=== PATIENT | male | born 1940 | race Caucasian/White ===

== ENCOUNTER 2024-11-14 15:55 | Inpatient (IN) ==
--- NOTE | 2024-11-14 16:21 | Emergency Department Note ---
Impression & Plan SOB (shortness of breath), Atrial fibrillation with rapid ventricular response, CHF (congestive heart failure), Elevated troponin, Elevated liver enzymes, Lung mass ED Provider Note NAME: PHILLIP QUEZADA AGE: 84 SEX: M : 1940 ARRIVES VIA: Walk-In INFORMANT: [Patient][sister] ED PROVIDER(S): [Bala Boggs MD] CHIEF COMPLAINT: Abnormal laboratories HISTORY OF PRESENT ILLNESS: The patient is an 84-year-old male whose had a cough and some shortness of breath for several weeks. No fever. The patient went to an outpatient walk-in center today in [place] and, was found to have some issues with his liver and heart. He was referred to our ER. Patient has some known bilateral inguinal hernias, he states that they are not really causing him any pain. He has no history of heart or liver disease. The patient denies any chest pain. He states his cough is basically nonproductive. No recent vomiting. The patient has not been to see a physician in over 50 years. PMHx/PSHx/Social Hx: See Below PHYSICAL EXAM: GENERAL: Patient is in no acute distress. HEENT: No acute trauma, normocephalic atraumatic, mucous membranes moist, no nasal congestion. NECK: No stridor, no adenopathy, no meningismus, trachea is midline. LUNGS: Clear to auscultation bilaterally, no wheeze, no rhonchi, breath sounds equal. Breath sounds diminished bilaterally. HEART: 2/6 systolic murmur, somewhat irregular rhythm. Normal rate. ABDOMEN: Soft, nontender, no peritonitis. EXTREMITIES: No cyanosis, full range of motion of all the joints without pain or difficulty. Mild bilateral pedal edema. NEUROLOGIC: Oriented x 3, no acute motor or sensory deficits, no focal weakness. SKIN: Mild jaundice, no diaphoresis. DIFFERENTIAL DIAGNOSIS: Liver failure, renal failure, cardiac ischemia, TN, pneumonia, anemia, among others. EMERGENCY DEPARTMENT PROCEDURES: MEDICAL DECISION MAKING: There is no leukocytosis or concerning anemia. There is a lower platelet count at 126. No coagulopathy. VBG did not show any significant CO2 retention, no acidosis. Renal panel testing did not show any acute renal failure or significant electrolyte abnormality. Liver enzymes were elevated, the bilirubin was 2.3. Ammonia level was not elevated. ECG showed a rapid atrial fibrillation without acute ischemia. Cardiac enzyme testing x 1 was slightly elevated. This troponin ovation could be secondary to cardiac injury or mismatch from the rapid heart rate and dyspnea. The patient appeared to be in a euthyroid state. Chest x-ray shows some potential lower lung atelectasis versus infiltrate or even CHF. There was a right lung mass. Chest CT showed the right lung mass and findings of CHF, there was no PE. Abdominal and pelvis CT showed some fatty infiltration to the liver, no acute surgical process, no bowel obstruction. No liver mass. The prostate was enlarged. On exam, the patient was not toxic, he was not hypoxic. He was in a rapid atrial fibrillation. The patient received a 500 cc saline bolus. He was eventually given an IV diltiazem bolus and placed on a diltiazem drip. I talked to the patient and his sister. I did discuss his findings. Hospitalization was clearly indicated. I spoke with the case management team, the on-call hospitalist was consulted. In short, the patient has multiple reasons to be short of breath. He has a mass in his lung, he is in mild heart failure, he is in rapid A-fib. Further workup, monitoring and care is indicated inpatient. Prior/Outside records/notes reviewed: None ECG per my interpretation: Indication was shortness of breath. The ECG shows atrial fibrillation with a rate of 114. PVCs were seen. There was a right bundle branch block. No acute ST elevation. QTc was 435. Continuous Cardiac Monitoring per my interpretation: An order was placed for continuous cardiac monitoring. The monitor shows a rate of 78 with atrial fibrillation. Imaging/x-ray results per my interpretation: Chest x-ray shows some potential heart failure versus bilateral lower lung congestion/atelectasis. A right lung mass was seen along the superior mediastinum. Chronic Medical/Social conditions affecting care: Advanced age. Care/Management discussed with: Case management, the on-call hospitalist. Level of care consideration(s): After review of the information above and other included data: --I believe the patient requires escalation of care to admission Critical Care Note: I have personally spent 54 minutes of critical care time in the direct management of this patient. This includes bedside care, interpretation of diagnostic studies, and testing, discussion with consultants, patient, and family members, and other required patient management activities. This 54 minutes is in excess of all separately billable procedures. DISPOSITION: Admission Past Med/Surg History Problem List Mediastinal mass Atrial fibrillation with RVR Social History Smoking Status: Never smoker Preferred Language: Urdu Feels Safe at Home: Yes Allergies Allergies Allergy/AdvReac Type Severity Reaction Status Date / Time No Known Allergies Allergy Unverified 11/14/24 18:48 Home Meds Home Medications Medication Instructions Recorded Confirmed No Known Home Medications 11/14/24 11/14/24 Results & Data (ED) Vital Signs Vital Signs - 24 hr 11/14/24 16:00 11/14/24 16:39 11/14/24 16:39 Temperature 36.6 C Temperature Source Temporal Artery Scan Pulse Rate 70 114 H Pulse Rate [Apical] 112 H Pulse Rate from SpO2 Sensor Pulse Rhythm Irregular Pulse Rhythm [Apical] Regular Pulse Strength [Apical] Normal Respiratory Rate 16 19 19 Respiratory Effort / Characteristics Non-Labored Spontaneous Non-Labored Spontaneous Respiratory Depth Normal Normal Respiratory Pattern Regular Blood Pressure 137/86 Blood Pressure [Right Arm] 143/98 H Blood Pressure Mean 103 Blood Pressure Mean [Right Arm] 113 Blood Pressure Position [Right Arm] Sitting Pulse Oximetry 100 94 94 Oxygen Delivery Method Room Air Room Air Room Air Sepsis Recent Fever Within 48 Hours No Sepsis New/Unexplained Change in Mental Status No Sepsis Action Taken by Nursing No Action Required 11/14/24 16:45 11/14/24 18:00 11/14/24 18:06 Temperature Temperature Source Pulse Rate 112 H 102 H Pulse Rate [Apical] 111 H Pulse Rate from SpO2 Sensor 124 H Pulse Rhythm Pulse Rhythm [Apical] Regular Pulse Strength [Apical] Normal Respiratory Rate 18 19 Respiratory Effort / Characteristics Non-Labored Spontaneous Respiratory Depth Normal Respiratory Pattern Regular Blood Pressure Blood Pressure [Right Arm] 141/98 H Blood Pressure Mean Blood Pressure Mean [Right Arm] 112 Blood Pressure Position [Right Arm] Lying Pulse Oximetry 96 93 Oxygen Delivery Method Room Air Sepsis Recent Fever Within 48 Hours Sepsis New/Unexplained Change in Mental Status Sepsis Action Taken by Nursing 11/14/24 18:08 11/14/24 18:15 11/14/24 18:21 Temperature Temperature Source Pulse Rate 108 H 119 H Pulse Rate [Apical] Pulse Rate from SpO2 Sensor 113 H 116 H Pulse Rhythm Pulse Rhythm [Apical] Pulse Strength [Apical] Respiratory Rate 17 14 Respiratory Effort / Characteristics Respiratory Depth Respiratory Pattern Blood Pressure 141/98 H 122/100 Blood Pressure [Right Arm] Blood Pressure Mean 110 107 Blood Pressure Mean [Right Arm] Blood Pressure Position [Right Arm] Pulse Oximetry 97 97 Oxygen Delivery Method Sepsis Recent Fever Within 48 Hours Sepsis New/Unexplained Change in Mental Status Sepsis Action Taken by Group Home Medications Current Medication List: was personally reviewed by me Laboratory Data Attestation: I reviewed the patient's lab results. 11/14/24 16:30 11/14/24 16:30 Lab Results 11/14/24 11/14/24 Range/Units 16:30 18:11 WBC 5.02 (4.8-10.8) K/ul RBC 5.38 (4.70-6.10) M/uL Hgb 16.9 (14.0-18.0) g/dl Hct 50.4 (42.0-52.0) % MCV 93.7 (80.0-100.0) fL MCH 31.4 (25.0-34.0) pg MCHC 33.5 (32.0-36.0) g/dL RDW Std Deviation 47.9 H (36.4-46.3) fL RDW Coeff of Ankur 13.9 (11.5-14.5) % Plt Count 126 L (130-400) K/uL MPV 10.2 (9.4-12.4) fL Immature Gran % (Auto) 0.2 % Neut % (Auto) 66.0 % Lymph % (Auto) 19.1 % Taylor % (Auto) 12.9 % Eos % (Auto) 0.8 % Baso % (Auto) 1.0 % Neut # (Auto) 3.31 (1.40-6.50) K/uL Lymph # (Auto) 0.96 L (1.20-3.40) K/uL Taylor # (Auto) 0.65 H (0.11-0.59) K/uL Eos # (Auto) 0.04 (0.00-0.50) K/uL Baso # (Auto) 0.05 (0.00-0.20) K/uL Immature Gran # (Auto) 0.01 (0.01-0.20) K/uL PT 11.4 (9.0-12.0) Seconds INR 1.1 (0.9-1.1) APTT 27 (21-31) Seconds PTT Ratio 1.0 VBG pH 7.43 H (7.36-7.41) VBG pCO2 43 (38-50) mmHg VBG pO2 30 mmHg VBG HCO3 29 mmol/L VBG O2 Saturation < 60.0 % VBG Base Excess 3.7 mEq/L Sodium 141 (136-145) mmol/L Potassium 4.5 (3.5-5.1) mmol/L Chloride 104 (98-107) mmol/L Carbon Dioxide 29 (21-32) mmol/L Anion Gap 8 (3-11) BUN 24 H (6-23) mg/dl Creatinine 1.11 (0.6-1.4) mg/dl Est Cr Clr Drug Dosing 45.8 ml/min eGFR 66.30 BUN/Creatinine Ratio 21.6 H (10-20) Glucose 111 H (70-99(Fasting)) mg/dl Calcium 9.7 (8.6-10.3) mg/dl Magnesium 2.1 (1.7-2.4) mg/dl Total Bilirubin 2.3 H (0.2-1.0) mg/dl AST 65 H (13-39) U/L ALT 91 H (7-52) U/L Alkaline Phosphatase 88 (34-104) U/L Ammonia 17.0 L (18-72) umol/L Troponin I High Sens 23.4 H 24.2 H (0-20) pg/ml Total Protein 7.4 (6.0-8.3) gm/dl Albumin 4.7 (3.4-5.0) gm/dl Globulin 2.7 (2.5-4.0) gm/dl Albumin/Globulin Ratio 1.7 (0.9-2) TSH 0.803 (0.300-4.500) uIu/ml Administered Medications Discontinued Medications Diltiazem HCl (Diltiazem Hcl 5 Mg/Ml 5 Ml Vial) 15 mg IV NOW STA Stop: 11/14/24 18:44 Last Admin: 11/14/24 18:56 Dose: 15 mg Documented By: APRIL Co-signed By: ODALIS Sodium Chloride (Nss) 500 mls @ 999 mls/hr IV .Q31M ANNETTE Stop: 11/14/24 16:45 Last Infusion: 11/14/24 17:08 Dose: Infused Documented By: Admin: 11/14/24 16:34 Dose: 999 mls/hr Documented By: APRIL Ioversol (Optiray 320 125ml) 115 ml IV ONCE ONE Stop: 11/14/24 17:57 Last Admin: 11/14/24 17:59 Dose: 115 ml Documented By: AYAN Imaging Data Radiologist's Impression: Chest X-Ray 11/14/24 16:06 Clinical History: Cough Technique: A frontal view of the chest was obtained No prior examination is available for comparison Findings: There are bilateral lower lobe opacities, concerning for pneumonia. The heart size is at the upper limit of normal. No pleural effusion or pneumothorax is seen. There is right paratracheal masslike prominence with deviation of the trachea towards the left. No fracture is noted. No foreign body is seen Impression: 1. Apparent large right paratracheal mass, concerning for neoplasm or adenopathy. Contrast-enhanced CT of the chest is recommended for further evaluation 2. Suspected bilateral lower lobe pneumonia ACT 112: Positive. There are findings on this exam that require communication between the performing entity and the patient following Patient Test Result Information Act ([place] ACT 112) guidelines. Electronically signed by Xavier Benson 11-14-2024 5:52 PM Abdomen/Pelvis CT 11/14/24 16:16 Clinical History: Liver disease. Possible mass Technique: Axial computed tomography images were obtained of the abdomen and pelvis after the administration of intravenous contrast. No prior CT is available for comparison. Findings: There is fatty infiltration of the liver. There is an apparent 6 mm cyst in the right hepatic lobe. No definite liver mass lesion is seen. The portal vein is patent. The gallbladder appears unremarkable. No bile duct dilatation is noted. The spleen is of normal size. No focal splenic lesion is evident. The pancreas appears normal with no sign of acute or chronic pancreatitis and no mass lesion noted. The pancreatic duct is of normal caliber. The adrenal glands appear unremarkable. No definite renal or proximal ureteral calculi are seen on this contrast-enhanced study. There is no hydronephrosis or perinephric stranding. No renal mass lesion is identified. There is a large 7 cm right renal cyst. There are smaller renal cortical and peripelvic cysts bilaterally. The abdominal aorta is of normal caliber. No abdominal adenopathy is seen. The stomach appears normal. There is a small right inguinal hernia containing a loop of ileum. There is no sign of small bowel obstruction. There is diverticulosis without evidence of diverticulitis. No free intraperitoneal air is identified. There is a small amount of free pelvic fluid No distal ureteral or bladder calculi are seen. No bladder mass lesion is evident. The iliac arteries are of normal caliber. No pelvic adenopathy is noted. The prostate is enlarged measuring approximately 7.5 x 6 cm. There is a small left inguinal hernia containing only fat. There is an L2 compression fracture, likely old. 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 No focal osseous lesion is seen Impression: 1. Fatty infiltration of the liver and small hepatic cyst 2. Bilateral renal cysts 3. Small right inguinal hernia containing small bowel. There is no associated bowel obstruction 4. Small amount of pelvic ascites 5. Diverticulosis without definite diverticulitis 6. Markedly enlarged prostate. Correlation with PSA levels is recommended 7. L2 compression fracture, likely old ACT 112: Positive. There are findings on this exam that require communication between the performing entity and the patient following Patient Test Result Information Act ([place] ACT 112) guidelines. Electronically signed by Xavier Benson 11-14-2024 6:29 PM Chest CTA 11/14/24 17:26 Clinical history: Liver disease. Possible mass Technique: Axial computed tomography images were obtained of the chest after the administration of intravenous contrast according to the CT angiogram protocol Findings: There is no definite sign of pulmonary embolism. There is mild pulmonary edema. There is mild emphysema. There is bilateral lower lobe atelectasis. There are bilateral moderate sized pleural effusions. There is no pneumothorax. There is no sign of pulmonary fibrosis or other diffuse interstitial process. No endobronchial lesion is seen There is a large 10 x 7 cm heterogeneously enhancing right paratracheal mass, displacing the trachea towards the left. This appears contiguous with the inferior aspect of the right lobe of the thyroid. There is no mediastinal, hilar, or axillary adenopathy. The thoracic aorta appears unremarkable with no sign of aneurysm or dissection. There is no pericardial effusion No fracture is seen. No focal osseous lesion is evident Impression: 1. No definite sign of pulmonary embolism 2. 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 While this could represent a benign thyroid nodule, thyroid or other malignancy must be considered and tissue diagnosis will likely be needed 3. Bilateral pleural effusions 4. Mild pulmonary edema and bilateral lower lobe atelectasis 5. Mild emphysema ACT 112: Positive. There are findings on this exam that require communication between the performing entity and the patient following Patient Test Result Information Act ([place] ACT 112) guidelines. Electronically signed by Xavier Benson 11-14-2024 6:22 PM Discharge Plan Visit Data Chief Complaint: Abnormal Labs/Diagnostic Testing Stated Complaint: LIVER EKG, ABNORMAL ED Provider: Bala Boggs Discharge Problem: SOB (shortness of breath), Atrial fibrillation with rapid ventricular response, CHF (congestive heart failure), Elevated troponin, Elevated liver enzymes, Lung mass Patient Disposition: Admitted As Inpatient Condition: Serious Forms Stand Alone Forms: Doctor At Work Prescriptions Prescriptions: No Action No Known Home Medications Referrals Referrals: PCP,NO [Primary Care Provider] -
[2024-11-14] MEDS: SODIUM CHLORIDE 0.9% 500 ML IV SCH (16:34)
[2024-11-14 16:45] LABS: Base Excess VBG 3.7 mEq/L; HCO3 VBG 29 mmol/L; Oxygen Saturation VBG < 60.0 %; PCO2 VBG 43 mmHg (38-50); PO2 VBG 30 mmHg; pH VBG 7.43 (7.36-7.41)
[2024-11-14 16:59] LABS: Basophils # (auto) 0.05 K/uL (0.00-0.20); Eosinophils # (auto) 0.04 K/uL (0.00-0.50); Eosinophils % (auto) 0.8 %; Hematocrit (blood only) 50.4 % (42.0-52.0); Hemoglobin 16.9 g/dl (14.0-18.0); Immature Granulocytes # (auto) 0.01 K/uL (0.01-0.20); Immature Granulocytes % (auto) 0.2 %; Lymphocytes # (auto) 0.96 K/uL (1.20-3.40); Lymphocytes % (auto) 19.1 %; Mean Corpuscular Hemoglobin 31.4 pg (25.0-34.0); Mean Corpuscular Hgb Conc 33.5 g/dL (32.0-36.0); Mean Corpuscular Volume 93.7 fL (80.0-100.0); Mean Platelet Volume 10.2 fL (9.4-12.4); Monocytes # (auto) 0.65 K/uL (0.11-0.59); Monocytes % (auto) 12.9 %; Neutrophils # (auto) 3.31 K/uL (1.40-6.50); Platelet Count 126 K/uL (130-400); RDW Coefficient of Variation 13.9 % (11.5-14.5); RDW Standard Deviation 47.9 fL (36.4-46.3); Red Blood Count 5.38 M/uL (4.70-6.10); White Blood Count 5.02 K/ul (4.8-10.8)
[2024-11-14 17:15] LABS: Albumin Globulin Ratio 1.7 (0.9-2); Albumin Level 4.7 gm/dl (3.4-5.0); BUN Creatinine Ratio 21.6 (10-20); Bilirubin,Total 2.3 mg/dl (0.2-1.0); Calcium 9.7 mg/dl (8.6-10.3); Creatinine Clr Calc Pharmacy 45.8 ml/min; Globulin 2.7 gm/dl (2.5-4.0); Magnesium 2.1 mg/dl (1.7-2.4); Potassium 4.5 mmol/L (3.5-5.1); Total Protein 7.4 gm/dl (6.0-8.3)
[2024-11-14 17:22] LABS: Troponin I High Sensitivity 23.4 pg/ml (0-20)
[2024-11-14 17:31] LABS: Thyroid Stimulating Hormone 0.803 uIu/ml (0.300-4.500)
[2024-11-14 17:53] LABS: INR 1.1 (0.9-1.1); Partial Thromboplastin Time 27 Seconds (21-31); Prothrombin Time 11.4 Seconds (9.0-12.0)
--- NOTE | 2024-11-14 17:53 | XRay Report ---
Clinical History: Cough Technique: A frontal view of the chest was obtained No prior examination is available for comparison Findings: There are bilateral lower lobe opacities, concerning for pneumonia. The heart size is at the upper limit of normal. No pleural effusion or pneumothorax is seen. There is right paratracheal masslike prominence with deviation of the trachea towards the left. No fracture is noted. No foreign body is seen Impression: 1. Apparent large right paratracheal mass, concerning for neoplasm or adenopathy. Contrast-enhanced CT of the chest is recommended for further evaluation 2. Suspected bilateral lower lobe pneumonia ACT 112: Positive. There are findings on this exam that require communication between the performing entity and the patient following Patient Test Result Information Act ([place] ACT 112) guidelines. Electronically signed by Xavier Benson 11-14-2024 5:52 PM
[2024-11-14] MEDS: OPTIRAY 320 125ml IV ONE (17:59)
--- NOTE | 2024-11-14 18:23 | CT Scan Report ---
Clinical history: Liver disease. Possible mass Technique: Axial computed tomography images were obtained of the chest after the administration of intravenous contrast according to the CT angiogram protocol Findings: There is no definite sign of pulmonary embolism. There is mild pulmonary edema. There is mild emphysema. There is bilateral lower lobe atelectasis. There are bilateral moderate sized pleural effusions. There is no pneumothorax. There is no sign of pulmonary fibrosis or other diffuse interstitial process. No endobronchial lesion is seen There is a large 10 x 7 cm heterogeneously enhancing right paratracheal mass, displacing the trachea towards the left. This appears contiguous with the inferior aspect of the right lobe of the thyroid. There is no mediastinal, hilar, or axillary adenopathy. The thoracic aorta appears unremarkable with no sign of aneurysm or dissection. There is no pericardial effusion No fracture is seen. No focal osseous lesion is evident Impression: 1. No definite sign of pulmonary embolism 2. 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 While this could represent a benign thyroid nodule, thyroid or other malignancy must be considered and tissue diagnosis will likely be needed 3. Bilateral pleural effusions 4. Mild pulmonary edema and bilateral lower lobe atelectasis 5. Mild emphysema ACT 112: Positive. There are findings on this exam that require communication between the performing entity and the patient following Patient Test Result Information Act ([place] ACT 112) guidelines. Electronically signed by Xavier Benson 11-14-2024 6:22 PM
--- NOTE | 2024-11-14 18:29 | CT Scan Report ---
Clinical History: Liver disease. Possible mass Technique: Axial computed tomography images were obtained of the abdomen and pelvis after the administration of intravenous contrast. No prior CT is available for comparison. Findings: There is fatty infiltration of the liver. There is an apparent 6 mm cyst in the right hepatic lobe. No definite liver mass lesion is seen. The portal vein is patent. The gallbladder appears unremarkable. No bile duct dilatation is noted. The spleen is of normal size. No focal splenic lesion is evident. The pancreas appears normal with no sign of acute or chronic pancreatitis and no mass lesion noted. The pancreatic duct is of normal caliber. The adrenal glands appear unremarkable. No definite renal or proximal ureteral calculi are seen on this contrast-enhanced study. There is no hydronephrosis or perinephric stranding. No renal mass lesion is identified. There is a large 7 cm right renal cyst. There are smaller renal cortical and peripelvic cysts bilaterally. The abdominal aorta is of normal caliber. No abdominal adenopathy is seen. The stomach appears normal. There is a small right inguinal hernia containing a loop of ileum. There is no sign of small bowel obstruction. There is diverticulosis without evidence of diverticulitis. No free intraperitoneal air is identified. There is a small amount of free pelvic fluid No distal ureteral or bladder calculi are seen. No bladder mass lesion is evident. The iliac arteries are of normal caliber. No pelvic adenopathy is noted. The prostate is enlarged measuring approximately 7.5 x 6 cm. There is a small left inguinal hernia containing only fat. There is an L2 compression fracture, likely old. 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 No focal osseous lesion is seen Impression: 1. Fatty infiltration of the liver and small hepatic cyst 2. Bilateral renal cysts 3. Small right inguinal hernia containing small bowel. There is no associated bowel obstruction 4. Small amount of pelvic ascites 5. Diverticulosis without definite diverticulitis 6. Markedly enlarged prostate. Correlation with PSA levels is recommended 7. L2 compression fracture, likely old ACT 112: Positive. There are findings on this exam that require communication between the performing entity and the patient following Patient Test Result Information Act ([place] ACT 112) guidelines. Electronically signed by Xavier Benson 11-14-2024 6:29 PM
[2024-11-14] MEDS: dilTIAZem HCl 5 MG/ML 5 ML VIAL IV STA (18:56)
--- NOTE | 2024-11-14 18:59 | History & Physical Report ---
Date of Service November 14, 2024 Assessment & Plan (1) Atrial fibrillation with RVR: Plan: New onset Afib Patient is 84 year old male without known PMH, however hasn't been seen by PCP for over 50 years presented to ER with c/o SOB and cough x 3 weeks. Denies CP, p alpitations In ER afebrile, P: 112, BP 143/98, R: 19, 94% on room air In ER found to have new onset a-fib on EKG with HR 114 and PVCs. He received bolus Cardizem with HR in 80's-90's CXR: Apparent large right paratracheal mass, concerning for neoplasm or adenopathy. C CTA Chest: no PE, bilateral pleural effusions, mild pulmonary edema TSH: 0.8. No significant electrolyte abnormality Start metoprolol tartrate 12.5mg po BID IV heparin EKG in a.m. Echo Cardiology consult #Elevated troponin Troponin: 23, 24 Denies CP Suspect demand ischemia likely from afib rvr, likely underlying CHF Trend troponin EKG in am #BLE Edema #Volume overload #Acute CHF CT Chest: Bilateral pleural effusions. 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 While this could represent a benign thyroid nodule, thyroid or other malignancy must be considered and tissue diagnosis will likely be needed Obtain Thyroid ultrasound to further assess General surgery consult #Elevated LFTs T. bili: 2.3, AST: 65, ALT: 91, alk phos: 88 Unknown baseline Monitor LFTs Patient may require further workup including abdominal imaging DVT Prophylaxis IV Heparin Admit telemetry Full Code as per discussion with pt Does not follow with PCP for routine care Patient's sister with him today and is helping to reiterate current medical findings. It seems patient does not understand/grasp current medical findings and condition. Pt was seen and care coordinated with Dr Oliver. See addendum I spent a total of 55 minutes reviewing notes, outpatient records, labs, medication, coordinating, documenting and providing care for this patient excluding time spent in the performance of separately billed services and excluding time spent by another provider/QHP. History of Present Illness Primary Care Provider: NO PCP Patient is 84 year old male without known PMH, however hasn't been seen by PCP for over 50 years presented to ER with c/o SOB and cough x 3 weeks. Patient states 3 weeks ago started with cough and SOB. Denies hemoptysis. Denies chest pain. States has been mowing lawn and walking several miles without CP. Has noticed increased SOB with exertion. Denies palpitations. Patient keeps repeating that it was "cold air that caused the cough". He denies ill contacts. Has noticed decreased appetite and lost weight but unable to describe over what timeframe. He noticed BLE edema, he thinks noticed it today. Went to urgent care today for cough and SOB and was sent to ER for further evaluation. Denies fever/chills, diaphoresis, N/V/D/C, BENAVIDES, dizziness, syncope, choking, otalgia, rhinorrhea, abdominal pain, weakness, rashes, urinary symptoms. In ER found to have new onset a-fib on EKG with HR 114 and PVCs. He received bolus Cardizem with HR in 80's-90's Allergies Allergy/AdvReac Type Severity Reaction Status Date / Time No Known Allergies Allergy Unverified 11/14/24 18:48 Home Medications Medication Instructions Recorded Confirmed Type No Known Home Medications 11/14/24 11/14/24 History Past Med/Surg History Problem List Mediastinal mass Atrial fibrillation with RVR Social History Smoking Status: Never smoker Hx Alcohol Use: No Hx Substance Use: No Preferred Language: Arabic Feels Safe at Home: Yes Review of Systems Review of Systems: All systems reviewed & are unremarkable except as noted in HPI & below Physical Exam Physical Exam: PE per Dr Oliver Results & Data Results & Data Vital Signs (Past 12 Hours) Vital Signs Temp Pulse Pulse Resp BP BP Pulse Ox 11/14/24 18:21 119 H 14 122/100 97 11/14/24 18:15 108 H 17 97 11/14/24 18:08 141/98 H 11/14/24 18:06 102 H 19 93 11/14/24 18:00 111 H 18 141/98 H 96 11/14/24 16:45 112 H 11/14/24 16:39 114 H 19 94 11/14/24 16:39 112 H 19 143/98 H 94 11/14/24 16:00 36.6 C 70 16 137/86 100 O2 Del Method 11/14/24 18:21 11/14/24 18:15 11/14/24 18:08 11/14/24 18:06 11/14/24 18:00 Room Air 11/14/24 16:45 11/14/24 16:39 Room Air 11/14/24 16:39 Room Air 11/14/24 16:00 Room Air Laboratory Results Short CBC 11/14/24 Range/Units 16:30 WBC 5.02 (4.8-10.8) K/ul Hgb 16.9 (14.0-18.0) g/dl Hct 50.4 (42.0-52.0) % Plt Count 126 L (130-400) K/uL BMP 11/14/24 16:30 Sodium 141 Potassium 4.5 Chloride 104 Carbon Dioxide 29 BUN 24 H Creatinine 1.11 Glucose 111 H Calcium 9.7 Liver Function 11/14/24 Range/Units 16:30 Total Bilirubin 2.3 H (0.2-1.0) mg/dl AST 65 H (13-39) U/L ALT 91 H (7-52) U/L Alkaline Phosphatase 88 (34-104) U/L Albumin 4.7 (3.4-5.0) gm/dl Diagnostic Findings Chest X-Ray 11/14/24 16:06 Clinical History: Cough Technique: A frontal view of the chest was obtained No prior examination is available for comparison Findings: There are bilateral lower lobe opacities, concerning for pneumonia. The heart size is at the upper limit of normal. No pleural effusion or pneumothorax is seen. There is right paratracheal masslike prominence with deviation of the trachea towards the left. No fracture is noted. No foreign body is seen Impression: 1. Apparent large right paratracheal mass, concerning for neoplasm or adenopathy. Contrast-enhanced CT of the chest is recommended for further evaluation 2. Suspected bilateral lower lobe pneumonia ACT 112: Positive. There are findings on this exam that require communication between the performing entity and the patient following Patient Test Result Information Act ([place] ACT 112) guidelines. Electronically signed by Xavier Benson 11-14-2024 5:52 PM Abdomen/Pelvis CT 11/14/24 16:16 Clinical History: Liver disease. Possible mass Technique: Axial computed tomography images were obtained of the abdomen and pelvis after the administration of intravenous contrast. No prior CT is available for comparison. Findings: There is fatty infiltration of the liver. There is an apparent 6 mm cyst in the right hepatic lobe. No definite liver mass lesion is seen. The portal vein is patent. The gallbladder appears unremarkable. No bile duct dilatation is noted. The spleen is of normal size. No focal splenic lesion is evident. The pancreas appears normal with no sign of acute or chronic pancreatitis and no mass lesion noted. The pancreatic duct is of normal caliber. The adrenal glands appear unremarkable. No definite renal or proximal ureteral calculi are seen on this contrast-enhanced study. There is no hydronephrosis or perinephric stranding. No renal mass lesion is identified. There is a large 7 cm right renal cyst. There are smaller renal cortical and peripelvic cysts bilaterally. The abdominal aorta is of normal caliber. No abdominal adenopathy is seen. The stomach appears normal. There is a small right inguinal hernia containing a loop of ileum. There is no sign of small bowel obstruction. There is diverticulosis without evidence of diverticulitis. No free intraperitoneal air is identified. There is a small amount of free pelvic fluid No distal ureteral or bladder calculi are seen. No bladder mass lesion is evident. The iliac arteries are of normal caliber. No pelvic adenopathy is noted. The prostate is enlarged measuring approximately 7.5 x 6 cm. There is a small left inguinal hernia containing only fat. There is an L2 compression fracture, likely old. 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 No focal osseous lesion is seen Impression: 1. Fatty infiltration of the liver and small hepatic cyst 2. Bilateral renal cysts 3. Small right inguinal hernia containing small bowel. There is no associated bowel obstruction 4. Small amount of pelvic ascites 5. Diverticulosis without definite diverticulitis 6. Markedly enlarged prostate. Correlation with PSA levels is recommended 7. L2 compression fracture, likely old ACT 112: Positive. There are findings on this exam that require communication between the performing entity and the patient following Patient Test Result Information Act ([place] ACT 112) guidelines. Electronically signed by Xavier Benson 11-14-2024 6:29 PM Chest CTA 11/14/24 17:26 Clinical history: Liver disease. Possible mass Technique: Axial computed tomography images were obtained of the chest after the administration of intravenous contrast according to the CT angiogram protocol Findings: There is no definite sign of pulmonary embolism. There is mild pulmonary edema. There is mild emphysema. There is bilateral lower lobe atelectasis. There are bilateral moderate sized pleural effusions. There is no pneumothorax. There is no sign of pulmonary fibrosis or other diffuse interstitial process. No endobronchial lesion is seen There is a large 10 x 7 cm heterogeneously enhancing right paratracheal mass, displacing the trachea towards the left. This appears contiguous with the inferior aspect of the right lobe of the thyroid. There is no mediastinal, hilar, or axillary adenopathy. The thoracic aorta appears unremarkable with no sign of aneurysm or dissection. There is no pericardial effusion No fracture is seen. No focal osseous lesion is evident Impression: 1. No definite sign of pulmonary embolism 2. 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 While this could represent a benign thyroid nodule, thyroid or other malignancy must be considered and tissue diagnosis will likely be needed 3. Bilateral pleural effusions 4. Mild pulmonary edema and bilateral lower lobe atelectasis 5. Mild emphysema ACT 112: Positive. There are findings on this exam that require communication between the performing entity and the patient following Patient Test Result Information Act ([place] ACT 112) guidelines. Electronically signed by Xavier Benson 11-14-2024 6:22 PM Supervising Physician Co-Signing Physician Notes Presents with cough and SOB for weeks Patient has not seen a physician for over 50 years. Only sees his dentist per sister On exam, General: Elderly man in no distress Eyes: PERRL, conjunctivae normal, not pale, anicteric sclerae, EOM intact bilaterally ENMT: External ear and nose normal, oropharynx normal Respiratory: Normal respiratory effort, no respiratory distress, +crackles Cardiovascular: Irregularly irregular Gastrointestinal (Abdomen): Abdomen is not distended, soft, non-tender to palpation, no guarding, no palpable hepatosplenomegaly, normal bowel sounds, b/l inguinal hernia Musculoskeletal: +bilateral pedal edema Neurologic: Alert and oriented x 3, No focal weakness, sensation grossly intact Psychiatric: Euthymic affect. Labs notable for Plt 126, TBil 2.3, AST 65, ALT 91, Troponin 23-24 CTA chest noted large 10cm mediastinal mass likely arising from right lobe of thyroid, b/l pleural effusion, pulm edema CT A/P noted fatty infiltration of liver and small hepatic cyst, b/l renal cysts, small right inguinal hernia containing small bowel with no obstruction, small pelvic ascites, markedly enlarged prostate, likely old L2 compression. Acute congestive heart failure New diagnosis of Atrial Fibrillation Mediastinal mass Start IV lasix 40mg daily HR improved with IV cardizem bolus in ER Start lopressor BP was mildly elevated at 143/98 on admission, hence possible undiagnosed HTN. CHADVASC about 2. Start hep gtt for now until Cards eval Get TTE Cards consult Get Gen surg consult for evaluation of ?thyroid mass Patient seems to have limited understanding about severity of illness based on my conversation with him. Updated sister at bedside as well Attending tomorrow to keep Sister involved in his care. Patient will need PCP set up. Will need outpatient follow up with Gen surg as well for his inguinal hernia management. Other plans as detailed by Guillermina Lopez PA-C I spent a total of 40 minutes coordinating, documenting and providing care for this patient excluding time spent in performance of separately billed services
[2024-11-14] MEDS: STAT IV Infusion **Titration per Protocol STA (19:18)
[2024-11-14] MEDS: dilTIAZem HCL 125 MG in DEXTROSE 5% 100 ML IV SCH (19:18)
[2024-11-14] MEDS: METOPROLOL TARTRATE 25 MG TAB PO ONE (19:20)
[2024-11-14] MEDS ORDERED: ACETAMINOPHEN 325 MG TAB PO PRN (20:55)
[2024-11-14] MEDS ORDERED: POLYETHYLENE (MIRALAX) 17 GM PACK PO PRN (20:55)
[2024-11-14] MEDS ORDERED: ONDANSETRON INJ 2 MG/ML 2 ML VIAL IV PRN (20:55)
[2024-11-14] MEDS: FUROSEMIDE 40 MG/4 ML VIAL IV ONE (21:18)
[2024-11-14] MEDS: HEPARIN 25000 UNIT/500 ML D5W 25,000 UNITS/500 ML BAG IV SCH (21:19)
--- NOTE | 2024-11-14 22:16 | Communication Note ---
Date of Service: November 14, 2024 Routine consultation was placed by the hospitalist service for general surgery due to mediastinal mass. I discussed case with my attending physician and has been mass in question is located in patient's mediastinum and this will need to be referred, likely to a tertiary center or to a thoracic surgeon as the mass in question is in the mediastinum. This information was discussed directly with the hospitalist service and they will make necessary arrangements.
[2024-11-14 22:42] LABS: Appearance Urine Clear (Clear); Bacteria Urine Automated None Seen (None Seen); Bilirubin Urine Negative (Negative); Blood Urine Negative (Negative); Cast Urine Automated 0-2 /lpf (0-2); Color Urine Yellow; Epithelial Cell Urine Auto 0-2 /hpf (0-2); Glucose Urine UA Negative (Negative); Ketones Urine Negative (Negative); Leukocyte Esterase Urine Negative (Negative); Nitrite Urine Negative (Negative); Protein Urine Trace (Negative); RBC Urine Automated 0-2 /hpf (0-2); Specific Gravity Urine 1.021 (1.000-1.030); Urobilinogen Urine Negative (Negative); WBC Urine Automated 0-5 /hpf (0-5)
--- NOTE | 2024-11-15 01:46 | Ultrasound Report ---
Exam(s): US THYROID EXAM: US Soft Tissues Head and Neck, Thyroid CLINICAL HISTORY: Reason for exam: mass. TECHNIQUE: Real-time ultrasound scan of the thyroid gland and soft tissues of the neck with image documentation. COMPARISON: None. FINDINGS: Left thyroid lobe: Measured 1.5 x 5.0 x 1.7 cm in size, demonstrates a 1.5 x 1.1 x 1.1 cm complex nodule within the mid lobe. No calcified nodules. Right thyroid lobe: Measured 2.3 x 12.5 x 4.2 cm in size. Demonstrates a small 0.8 x 0.3 x 0.7 cm isoechoic nodule with smaller calcification in the mid right thyroid lobe. There is a 9.9 x 4.9 x 5.5 cm highly suspicious complex solid mass incompletely visualized along the lower pole of the right thyroid lobe. . Isthmus: Not imaged. Lymph nodes: No significant lymphadenopathy.. IMPRESSION: Demonstrates incompletely a 9.9 x 4.9 x 5.5 cm large highly suspicious complex solid mass along the inferior pole of the right thyroid lobe. Biopsies/histological diagnosis is recommended. Demonstrates a 1.5 x 1.1 cm complex solid nodule in the mid left thyroid lobe. Ultrasound-guided FNA cytology recommended. . Electronically signed by: Norma Hitchcock MD, DABR 11/15/24 01:44 AM
[2024-11-15 03:53] LABS: Hematocrit (blood only) 44.4 % (42.0-52.0); Mean Corpuscular Hemoglobin 31.3 pg (25.0-34.0); Mean Corpuscular Hgb Conc 33.8 g/dL (32.0-36.0); Mean Corpuscular Volume 92.7 fL (80.0-100.0); Mean Platelet Volume 10.3 fL (9.4-12.4); Platelet Count 102 K/uL (130-400); RDW Coefficient of Variation 13.9 % (11.5-14.5); RDW Standard Deviation 47.6 fL (36.4-46.3); Red Blood Count 4.79 M/uL (4.70-6.10); White Blood Count 6.46 K/ul (4.8-10.8)
[2024-11-15 04:06] LABS: Albumin Globulin Ratio 1.7 (0.9-2); Albumin Level 3.8 gm/dl (3.4-5.0); BUN Creatinine Ratio 22.1 (10-20); Bilirubin,Total 1.9 mg/dl (0.2-1.0); Globulin 2.2 gm/dl (2.5-4.0); Potassium 4.3 mmol/L (3.5-5.1)
[2024-11-15 04:13] LABS: ANTI-Xa, UFH(UnfractionatedHep 0.21 IU/ml (0.3-0.7)
[2024-11-15] MEDS: Heparin IV Adult Wt-Based Low-Dose *NO* INITIAL Bolus Protocol IV STA (06:46)
[2024-11-15] MEDS: METOPROLOL TARTRATE 25 MG TAB PO SCH (08:06)
[2024-11-15] MEDS: FUROSEMIDE 40 MG/4 ML VIAL IV SCH (08:06)
--- NOTE | 2024-11-15 08:53 | Cardiology Consultation ---
Date of Consultation November 15, 2024 Assessment & Plan (1) Atrial fibrillation with RVR: (2) Mediastinal mass: (3) Mitral chordae rupture: (4) Severe mitral regurgitation: (5) Acute heart failure with preserved ejection fraction: Plan Patient admitted after 3 weeks of acute on set dyspnea/SOB, cough, orthopnea. On arrival, patient found to have atrial fibrillation RVR. Duration unknown. initially treated with Cardizem for rate control. Started on heparin IV for anticoagulation. transitioned to metoprolol tartrate 12.5 mg BID. Rates improved/controlled today. Echo reveals flail mitral valve leaflet with ruptured chordae and severe MR. Likely contributing to his abrupt onset dyspnea over the last several weeks and resulting in acute HFpEF B/L pleural effusions. Recommend IV furosemide. Started on 40 mg IV daily Monitor I+O's Good output thus far - 2 L Monitor renal function and electrolytes Needs diuresis for improved volume status. Once volume status improves, will need MAIRA and likely transfer to [facility] [place] evaluation However, patient also found to have large mediastinal mass, concerning for malignancy. Will need biopsy and staging performed possibly BEFORE CT surgery. Further recommendations pending review and discussion with Dr. Allen I spent a total of 70 minutes on the date of service in preparation, delivery, and documentation of the care provided to this patient, excluding any time spent in the performance of separately billed services. Whitney Greenberg PA-C Department of Cardiology, [facility] This chart was completed in part utilizing Speech Voice Recognition Software. Grammatical errors, random word insertions, pronoun errors, and incomplete sentences are an occasional consequence of this system due to software limitations, ambient noise, and hardware issues. Any formal questions or concerns about the content, text, or information contained within the body of this dictation should be directly addressed to the provider for clarification. Supervising Physician Co-Signing Physician Notes I have personally performed a history and physical examination on the patient. I have reviewed the advance practitioner's documentation, and I agree with, and take responsibility for the plan of care. 84-year-old patient presents to the emergency department with progressive shortness of breath over 3 weeks. Clinical evidence of acute heart failure with pulmonary edema and bilateral pleural effusions. Prior to onset of symptoms patient was walking up to 5 miles daily. Denies any chest discomfort or palpitations. Found to be atrial fibrillation with rapid ventricular response on admission. Treated with IV anticoagulation and low-dose beta-maryanne therapy. Heart rates have improved. Patient feeling better with diuresis (-2.7 liters). Echocardiogram demonstrating severe mitral regurgitation with evidence of anterior mitral valve flail. Recent chordal rupture suspected with abrupt onset of symptoms 3 weeks ago, and echocardiographic evidence of MV flail with severe mitral regurgitation. 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 Recommendations: * IV diuresis, furosemide 40 mg twice daily. * Maintain negative fluid balance. * Continue beta-maryanne therapy metoprolol tartrate 12.5 mg twice daily. * Give 20 mEq oral potassium chloride now in anticipation of additional Lasix this evening. * Monitor fluid balance and daily weight (standing scale only). * Anticoagulation with IV heparin Daily CBC to monitor thrombocytopenia. * Transfer to tertiary care center for cardiothoracic surgical evaluation of mitral valve disease and thoracic surgery evaluation of mediastinal mass. * Findings and recommendations discussed with internal medicine for continuity of care. I spent a total of 45 minutes on the date of service in preparation, delivery, and documentation of the care provided to this patient, excluding any time spent in the performance of separately billed services. Antoni Allen DO, [facility] History of Present Illness Reason for Consultation: Afib RVR Requesting Physician: Ivette Meadows Attending Physician: Dr. Allen History of Present Illness Patient is an 84 year old male who presented to [facility] complaints of worsening SOB, cough, orthopnea, and progressive dyspnea x 3 weeks. Prior to this, he was able to walk several miles per day and now limited in his functional capacity due to dyspnea. Due to these symptoms, his family encouraged him to come to the ER for evaluation. No prior cardiac history. No prior medical problems. Does not take medications on a regular basis nor does he visit doctors regularly. Upon arrival to the ER, patient was found to have atrial fibrillation with mildly elevated rates. Patient had no symptoms of palpitations. Duration unknown. Started on IV heparin, received IV Cardizem which aided his HR's and then started on low dose metoprolol 12.5 mg BID. Imaging revealed 10 cm mediastinal mass, possible thyroid mass. Surgery was consulted. It was felt that the mass location would be better evaluated by thoracic surgery and possible transfer to tertiary care center recommended. He was also found to have b/l pleural effusions. Started on IV lasix. Echo this morning revealed preserved LVEF with severe MR and possible ruptured chordae with anterior mitral valve leaflet flail At time of evaluation, patient resting in bed. reports his SOB at rest and orthopnea has improved since admission with IV lasix. Allergies Allergy/AdvReac Type Severity Reaction Status Date / Time No Known Drug Allergies Allergy Unverified 11/14/24 08:06 Home Medications Medication Instructions Recorded Confirmed Type No Known Home Medications 11/14/24 11/14/24 History No Known Home Medications 11/14/24 11/14/24 History Patient History Medical History (Updated 11/15/24 @ 12:51 by Whitney Greenberg PA-C) No pertinent past medical history No pertinent past medical history Surgical History (Updated 11/15/24 @ 09:00 by Shelley Thompson) No pertinent past surgical history No pertinent past surgical history Social History Smoking Status: Unknown if ever smoked Second Hand Exposure: No; Do You Dip or Chew Tobacco: No; Hx Alcohol Use: No Hx Substance Use: No Preferred Language: Burmese Communication Ability: Effective Visual Impairment: No Limitations Hearing Ability: Normal Aeronautical Inspector Required: No Beliefs That Will Affect Care: None marital status: Single Current Living Situation: Alone current occupational status: retired Feels Safe at Home: Yes Childhood Exposure to Second-Hand Smoke: Yes caffeine: No during the past year weight has: decreased > 10 lbs Dental Care, Regularly: Yes Physical Activity Frequency: Daily Seatbelt Use: always Sunscreen Use: Yes Assistive Devices: None Review of Systems Review of Systems: All systems reviewed & are unremarkable except as noted in HPI & below Physical Exam Constitutional: WD/WN, vitals as above Neck: trachea midline, no thyromegaly Respiratory: + cough; no labored breathing Auscult ation: + diminished lung sounds and + crackles Cardiovascular: Rate/Rhythm: + irregularly irregular Heart Sounds: + murmur (II/ murmur at apex) Vessels: + JVD Extremities: + edema (trace pretibial edema) Gastrointestinal (Abdomen): normal bowel sounds, soft, nontender, no hepatosplenomegaly Neurologic: PERRL, EOMI, accommodation nl, no face palsy, no dysarthria Results & Data Vital Signs (Past 12 Hours) Vital Signs Temp Pulse Pulse Resp BP Pulse Ox O2 Del Method 11/15/24 08:47 89 11/15/24 08:24 Room Air 11/15/24 08:24 37.0 C 92 H 20 109/73 95 Room Air 11/15/24 03:31 36.5 C 70 18 125/75 95 Room Air 11/15/24 00:11 96 H 11/14/24 23:12 36.6 C 76 17 100/62 94 Room Air 11/14/24 22:09 86 11/14/24 22:07 11/14/24 21:56 Room Air O2 Del Method 11/15/24 08:47 11/15/24 08:24 11/15/24 08:24 11/15/24 03:31 11/15/24 00:11 11/14/24 23:12 11/14/24 22:09 11/14/24 22:07 Room Air 11/14/24 21:56 Laboratory Results Cardiac Enzymes 11/14/24 11/14/24 11/14/24 Range/Units 16:30 18:11 19:30 AST 65 H (13-39) U/L Troponin I High Sens 23.4 H 24.2 H (0-20) pg/ml B-Natriuretic Peptide 323 H (0-100) pg/ml 11/15/24 11/15/24 Range/Units 00:33 03:28 AST 52 H (13-39) U/L Troponin I High Sens 26.9 H (0-20) pg/ml B-Natriuretic Peptide (0-100) pg/ml Coagulation 11/14/24 11/14/24 Range/Units 16:30 19:30 PT 11.4 (9.0-12.0) Seconds APTT 27 (21-31) Seconds B-Natriuretic Peptide 323 H (0-100) pg/ml CBC 11/14/24 11/15/24 Range/Units 16:30 03:28 WBC 5.02 6.46 (4.8-10.8) K/ul RBC 5.38 4.79 (4.70-6.10) M/uL Hgb 16.9 15.0 (14.0-18.0) g/dl Hct 50.4 44.4 (42.0-52.0) % Plt Count 126 L 102 L (130-400) K/uL Neut # (Auto) 3.31 (1.40-6.50) K/uL Lymph # (Auto) 0.96 L (1.20-3.40) K/uL Mckenzie # (Auto) 0.65 H (0.11-0.59) K/uL Eos # (Auto) 0.04 (0.00-0.50) K/uL Baso # (Auto) 0.05 (0.00-0.20) K/uL Comprehensive Metabolic Panel 11/14/24 11/15/24 Range/Units 16:30 03:28 Sodium 141 141 (136-145) mmol/L Potassium 4.5 4.3 (3.5-5.1) mmol/L Chloride 104 106 (98-107) mmol/L Carbon Dioxide 29 29 (21-32) mmol/L BUN 24 H 25 H (6-23) mg/dl Creatinine 1.11 1.13 (0.6-1.4) mg/dl Glucose 111 H 112 H (70-99(Fasting)) mg/dl Calcium 9.7 9.0 (8.6-10.3) mg/dl AST 65 H 52 H (13-39) U/L ALT 91 H 73 H (7-52) U/L Alkaline Phosphatase 88 66 (34-104) U/L Total Protein 7.4 6.0 (6.0-8.3) gm/dl Albumin 4.7 3.8 (3.4-5.0) gm/dl Intake and Output 11/14/24 11/15/24 11/15/24 22:59 06:59 14:59 Intake Total 500 / 654.75 154.75 / 654.75 43.733 / 43.733 Output Total 325 / 2095 1770 / 2095 Balance 175 / -1440.25 -1615.25 / -1440.25 43.733 / 43.733 Intake: IV 500 / 604.75 104.75 / 604.75 43.733 / 43.733 Heparin 59717 Unit/500 ml D5w 104.75 / 104.75 43.733 / 43.733 25,000 units In 500 ml @ 800 UNITS/HR 16 mls/hr IV .Q24H ANNETTE Rx#:[id number] Sodium Chloride 0.9% 500 ml @ 500 / 500 999 mls/hr IV .Q31M ANNETTE Rx#: [id number] Oral 50 / 50 Output: Urine 325 / 845 520 / 845 Urine Amount (Catheter) 1250 / 1250 Leonard/Indwelling 1250 / 1250 Other: Weight 63.1 kg 60.9 kg Weight Measurement Method Built in Bedscale Standing Scale Diagnostic Findings Telemetry reviewed: Afib with controlled rates this morning ranging 70-90's this morning EKG reviewed from admission: Afib with elevated ventricular rates at 114 bmp RBBB no prior EKG"s for comparison Repeat EKG 11/15/24: Atrial fibrillation with controlled rates in the 80's RBBB PVC's Echo report reviewed: no prior study for comparison LVEF 60-65% LA is severely dilated Mitral valve leaflets appear thickened, but open well Possible ruptured chordae with anterior mitral valve leaflet flail Mild posterior mitral valve prolapse severe MR MR jet is eccentrically directed mild TR Estimated pulm pressure is 60 mmHG Chest X-Ray 11/14/24 16:06 Clinical History: Cough Technique: A frontal view of the chest was obtained No prior examination is available for comparison Findings: There are bilateral lower lobe opacities, concerning for pneumonia. The heart size is at the upper limit of normal. No pleural effusion or pneumothorax is seen. There is right paratracheal masslike prominence with deviation of the trachea towards the left. No fracture is noted. No foreign body is seen Impression: 1. Apparent large right paratracheal mass, concerning for neoplasm or adenopathy. Contrast-enhanced CT of the chest is recommended for further evaluation 2. Suspected bilateral lower lobe pneumonia Abdomen/Pelvis CT 11/14/24 16:16 No definite renal or proximal ureteral calculi are seen on this contrast-enhanced study. There is no hydronephrosis or perinephric stranding. No renal mass lesion is identified. There is a large 7 cm right renal cyst. There are smaller renal cortical and peripelvic cysts bilaterally. The abdominal aorta is of normal caliber. No abdominal adenopathy is seen. The stomach appears normal. There is a small right inguinal hernia containing a loop of ileum. There is no sign of small bowel obstruction. There is diverticulosis without evidence of diverticulitis. No free intraperitoneal air is identified. There is a small amount of free pelvic fluid No distal ureteral or bladder calculi are seen. No bladder mass lesion is evident. The iliac arteries are of normal caliber. No pelvic adenopathy is noted. The prostate is enlarged measuring approximately 7.5 x 6 cm. There is a small left inguinal hernia containing only fat. There is an L2 compression fracture, likely old. 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 No focal osseous lesion is seen Impression: 1. Fatty infiltration of the liver and small hepatic cyst 2. Bilateral renal cysts 3. Small right inguinal hernia containing small bowel. There is no associated bowel obstruction 4. Small amount of pelvic ascites 5. Diverticulosis without definite diverticulitis 6. Markedly enlarged prostate. Correlation with PSA levels is recommended 7. L2 compression fracture, likely old Chest CTA 11/14/24 17:26 Impression: 1. No definite sign of pulmonary embolism 2. 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 While this could represent a benign thyroid nodule, thyroid or other malignancy must be considered and tissue diagnosis will likely be needed 3. Bilateral pleural effusions 4. Mild pulmonary edema and bilateral lower lobe atelectasis 5. Mild emphysema Thyroid Ultrasound 11/14/24 19:28 FINDINGS: Left thyroid lobe: Measured 1.5 x 5.0 x 1.7 cm in size, demonstrates a 1.5 x 1.1 x 1.1 cm complex nodule within the mid lobe. No calcified nodules. Right thyroid lobe: Measured 2.3 x 12.5 x 4.2 cm in size. Demonstrates a small 0.8 x 0.3 x 0.7 cm isoechoic nodule with smaller calcification in the mid right thyroid lobe. There is a 9.9 x 4.9 x 5.5 cm highly suspicious complex solid mass incompletely visualized along the lower pole of the right thyroid lobe. . Isthmus: Not imaged. Lymph nodes: No significant lymphadenopathy.. IMPRESSION: Demonstrates incompletely a 9.9 x 4.9 x 5.5 cm large highly suspicious complex solid mass along the inferior pole of the right thyroid lobe. Biopsies/histological diagnosis is recommended. Demonstrates a 1.5 x 1.1 cm complex solid nodule in the mid left thyroid lobe. Ultrasound-guided FNA cytology recommended. . Electronically signed by: Norma Hitchcock MD, RAO 11/15/24 01:44 AM Medications Administered Current Inpatient Medications Acetaminophen (Acetaminophen 325 Mg Tab) 650 mg PO Q4H PRN PRN Reason: Pain or Fever Stop: 12/14/24 20:54 Furosemide (Furosemide 40 Mg/4 Ml Vial) 40 mg IV DAILY [facility] Stop: 12/15/24 08:59 Last Admin: 11/15/24 08:06 Dose: 40 mg Heparin Sodium/Dextrose (Heparin 83948 Unit/500 Ml D5w) 25,000 units in 500 mls @ 17 mls/hr IV .Q24H ANNETTE; Protocol Stop: 12/14/24 19:44 Last Titration: 11/15/24 11:50 Dose: 850 units/hr, 17 mls/hr Metoprolol Tartrate (Metoprolol Tartrate 25 Mg Tab) 12.5 mg PO BID [facility] Stop: 12/15/24 08:59 Last Admin: 11/15/24 08:06 Dose: 12.5 mg Ondansetron HCl (Ondansetron Inj 2 Mg/Ml 2 Ml Vial) 4 mg IV Q6H PRN PRN Reason: Nausea Stop: 12/14/24 20:54 Polyethylene Glycol (Polyethylene (Miralax) 17 Gm Pack) 17 gm PO DAILY PRN PRN Reason: Constipation Stop: 12/14/24 20:54
[2024-11-15 11:45] LABS: ANTI-Xa, UFH(UnfractionatedHep 0.24 IU/ml (0.3-0.7)
[2024-11-15 12:22] VITALS: O2SAT 94
--- NOTE | 2024-11-15 12:37 | Hospitalist Progress Note ---
Date of Service November 15, 2024 Assessment & Plan (1) Atrial fibrillation with RVR: Admission and Anticipated Discharge Date Admission Date: November 14, 2024 Results & Data Results & Data Vital Signs (Past 12 Hours) Vital Signs Temp Pulse Pulse Resp BP Pulse Ox O2 Del Method 11/15/24 12:20 36.9 C 87 20 110/72 94 Room Air 11/15/24 08:47 89 11/15/24 08:24 Room Air 11/15/24 08:24 37.0 C 92 H 20 109/73 95 Room Air 11/15/24 03:31 36.5 C 70 18 125/75 95 Room Air Medications Administered Current Inpatient Medications Acetaminophen (Acetaminophen 325 Mg Tab) 650 mg PO Q4H PRN PRN Reason: Pain or Fever Stop: 12/14/24 20:54 Furosemide (Furosemide 40 Mg/4 Ml Vial) 40 mg IV BID [facility] Stop: 12/15/24 20:59 Heparin Sodium/Dextrose (Heparin 48422 Unit/500 Ml D5w) 25,000 units in 500 mls @ 17 mls/hr IV .Q24H ANNETTE; Protocol Stop: 12/14/24 19:44 Last Titration: 11/15/24 11:50 Dose: 850 units/hr, 17 mls/hr Metoprolol Tartrate (Metoprolol Tartrate 25 Mg Tab) 12.5 mg PO BID ANNETTE Stop: 12/15/24 08:59 Last Admin: 11/15/24 08:06 Dose: 12.5 mg Ondansetron HCl (Ondansetron Inj 2 Mg/Ml 2 Ml Vial) 4 mg IV Q6H PRN PRN Reason: Nausea Stop: 12/14/24 20:54 Polyethylene Glycol (Polyethylene (Miralax) 17 Gm Pack) 17 gm PO DAILY PRN PRN Reason: Constipation Stop: 12/14/24 20:54
--- NOTE | 2024-11-15 14:06 | Electrocardiogram Report ---
Test Reason : Blood Pressure : */* mmHG Vent. Rate : 114 BPM Atrial Rate : * BPM P-R Int : * ms QRS Dur : 132 ms QT Int : 316 ms P-R-T Axes : * 78 7 degrees QTcB Int : 435 ms Atrial fibrillation with rapid ventricular response with premature ventricular or aberrantly conducte d complexes Right bundle branch block Abnormal ECG No previous ECGs available Confirmed by Anthony Burton ([id number]) on 11/15/2024 2:05:59 PM Referred By: Confirmed By: Anthony Burton
--- NOTE | 2024-11-15 14:22 | Electrocardiogram Report ---
Test Reason : Blood Pressure : */* mmHG Vent. Rate : 88 BPM Atrial Rate : * BPM P-R Int : * ms QRS Dur : 136 ms QT Int : 424 ms P-R-T Axes : * -13 -36 degrees QTcB Int : 513 ms Atrial fibrillation with premature ventricular or aberrantly conducted complexes Right bundle branch block Abnormal ECG Confirmed by Anthony Burton ([id number] on 11/15/2024 2:21:43 PM Referred By: Ronal Iyer Confirmed By: Anthony Burton
[2024-11-15] MEDS: POTASSIUM CHLORIDE CRTAB 20 MEQ TABCR PO STA (15:05)
[2024-11-15 15:44] VITALS: BP 100/65; PULSE 85; RESP 18; TEMP 97.3
--- NOTE | 2024-11-15 16:17 | Discharge Summary ---
Discharge Summary Date of Service November 15, 2024 Principal Dx & Hospital Course #1 = Principal Diagnosis (1) Acute heart failure with preserved ejection fraction: (2) Mitral chordae rupture: (3) Atrial fibrillation: Plan Patient is an 84 year old male without known PMH (hasn't been seen by a physician for over 50 years) who presented to ER with c/o SOB and cough x 3 weeks. Denies CP, palpitations Atrial Fibrillation with RVR In the ER afebrile, P: 112, BP 143/98, R: 19, 94% on room air In the ER found to have new onset a-fib on EKG with HR 114 and PVCs. He received bolus Cardizem with HR in 80's-90's CXR: Noted "...Apparent large right paratracheal mass, concerning for neoplasm or adenopathy..." and suspected bilateral lower lobe pneumonia CTA Chest: no PE, bilateral pleural effusions, mild pulmonary edema and "... 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 No significant electrolyte abnormality Was started metoprolol tartrate 12.5mg po BID with IV heparin Echo with EF 60-65%, severe MR, and possible ruptured chordae with anterior mitral valve leaflet flail, mild posterior mitral valve leaflet prolapse Cardiology consulted, Dr Antoni Allen recommended/stated the following: "...84-year-old patient presents to the emergency department with progressive shortness of breath over 3 weeks. Clinical evidence of acute heart failure with pulmonary edema and bilateral pleural effusions. Prior to onset of symptoms patient was walking up to 5 miles daily. Denies any chest discomfort or palpitations. Found to be atrial fibrillation with rapid ventricular response on admission. Treated with IV anticoagulation and low-dose beta-maryanne therapy. Heart rates have improved. Patient feeling better with diuresis (-2.7 liters). Echocardiogram demonstrating severe mitral regurgitation with evidence of anterior mitral valve flail. Recent chordal rupture suspected with abrupt onset of symptoms 3 weeks ago, and echocardiographic evidence of MV flail with severe mitral regurgitation. 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 Recommendations: * IV diuresis, furosemide 40 mg twice daily. * Maintain negative fluid balance. * Continue beta-maryanne therapy metoprolol tartrate 12.5 mg twice daily. * Give 20 mEq oral potassium chloride now in anticipation of additional Lasix this evening. * Monitor fluid balance and daily weight (standing scale only). * Anticoagulation with IV heparin Daily CBC to monitor thrombocytopenia. * Transfer to tertiary care center for cardiothoracic surgical evaluation of mitral valve disease and thoracic surgery evaluation of mediastinal mass..." Pt was accepted for transfer to [facility] in [place] for further evaluation. Elevated troponin Troponin: 23, 24, 26- flat Denies CP EKG noting a fib with RVR Suspect demand ischemia likely from afib rvr, likely underlying CHF Mitral chordae rupture Severe mitral regurgitation Acute heart failure with preserved ejection fraction CT Chest: Bilateral pleural effusions. 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 Biopsies/histological diagnosis is recommended. Demonstrates a 1.5 x 1.1 cm complex solid nodule in the mid left thyroid lobe. Ultrasound-guided FNA cytology recommended..." General surgery consult noting "...will need to be referred, likely to a tertiary center or to a thoracic surgeon as the mass in question is in the mediastinum..." Pt was accepted for transfer to [facility] in [place] for further evaluation. Elevated LFTs T. bili: 2.3, AST: 65, ALT: 91, alk phos: 88 Unknown baseline Monitor LFTs CT abd pelvis noting "...Fatty infiltration of the liver and small hepatic cyst..." Enlarged Prostate Noted on CT abd/pelvis Noted "...Markedly enlarged prostate. Correlation with PSA levels is recommended..." Outpatient followup recommended Notes For Next Care Provider pt transferred to [facility] [place] Medication Changes From Visit As above Admission HPI Per Admitting Provider Patient is 84 year old male without known PMH, however hasn't been seen by PCP for over 50 years presented to ER with c/o SOB and cough x 3 weeks. Patient states 3 weeks ago started with cough and SOB. Denies hemoptysis. Denies chest pain. States has been mowing lawn and walking several miles without CP. Has noticed increased SOB with exertion. Denies palpitations. Patient keeps repeating that it was "cold air that caused the cough". He denies ill contacts. Has noticed decreased appetite and lost weight but unable to describe over what timeframe. He noticed BLE edema, he thinks noticed it today. Went to urgent care today for cough and SOB and was sent to ER for further evaluation. Denies fever/chills, diaphoresis, N/V/D/C, BENAVIDES, dizziness, syncope, choking, otalgia, rhinorrhea, abdominal pain, weakness, rashes, urinary symptoms. In ER found to have new onset a-fib on EKG with HR 114 and PVCs. He received bolus Cardizem with HR in 80's-90's Admission Exam Per Admitting Provider On exam, General: Elderly man in no distress Eyes: PERRL, conjunctivae normal, not pale, anicteric sclerae, EOM intact bilaterally ENMT: External ear and nose normal, oropharynx normal Respiratory: Normal respiratory effort, no respiratory distress, +crackles Cardiovascular: Irregularly irregular Gastrointestinal (Abdomen): Abdomen is not distended, soft, non-tender to palpation, no guarding, no palpable hepatosplenomegaly, normal bowel sounds, b/l inguinal hernia Musculoskeletal: +bilateral pedal edema Neurologic: Alert and oriented x 3, No focal weakness, sensation grossly intact Psychiatric: Euthymic affect. Discharge Exam General: Alert, oriented. No acute distress HEENT: NC/AT, CV: irregular, +murmur Resp: Breath sounds clear bilaterally, no increased effort of breathing Abdomen:Soft, nontender Extremities: edema in lower extremities bilaterally. Updated Medication List Medication Instructions Recorded Confirmed Type No Known Home Medications 11/14/24 11/14/24 History No Known Home Medications 11/14/24 11/14/24 History Additional Medication Comments Current Inpatient Medications Acetaminophen (Acetaminophen 325 Mg Tab) 650 mg PO Q4H PRN PRN Reason: Pain or Fever Stop: 12/14/24 20:54 Furosemide (Furosemide 40 Mg/4 Ml Vial) 40 mg IV BID ANNETTE Stop: 12/15/24 20:59 Heparin Sodium/Dextrose (Heparin 75420 Unit/500 Ml D5w) 25,000 units in 500 mls @ 17 mls/hr IV .Q24H ANNETTE; Protocol Stop: 12/14/24 19:44 Last Titration: 11/15/24 11:50 Dose: 850 units/hr, 17 mls/hr Metoprolol Tartrate (Metoprolol Tartrate 25 Mg Tab) 12.5 mg PO BID ANNETTE Stop: 12/15/24 08:59 Last Admin: 11/15/24 08:06 Dose: 12.5 mg Ondansetron HCl (Ondansetron Inj 2 Mg/Ml 2 Ml Vial) 4 mg IV Q6H PRN PRN Reason: Nausea Stop: 12/14/24 20:54 Polyethylene Glycol (Polyethylene (Miralax) 17 Gm Pack) 17 gm PO DAILY PRN PRN Reason: Constipation Stop: 12/14/24 20:54 Hospital Stay Data Consultations 11/14/24 20:55 Consult Cardiology Routine 11/15/24 15:50 Burn CD for patient Stat Diagnostic Imagining Performed 11/14/24 16:16 CT Abd and Pelvis [CT abd pelvis IV con only] Stat 11/14/24 17:26 CT angio chest PE protocol Stat 11/14/24 19:28 US thyroid Routine Chest X-Ray 11/14/24 16:06 Clinical History: Cough Technique: A frontal view of the chest was obtained No prior examination is available for comparison Findings: There are bilateral lower lobe opacities, concerning for pneumonia. The heart size is at the upper limit of normal. No pleural effusion or pneumothorax is seen. There is right paratracheal masslike prominence with deviation of the trachea towards the left. No fracture is noted. No foreign body is seen Impression: 1. Apparent large right paratracheal mass, concerning for neoplasm or adenopathy. Contrast-enhanced CT of the chest is recommended for further evaluation 2. Suspected bilateral lower lobe pneumonia ACT 112: Positive. There are findings on this exam that require communication between the performing entity and the patient following Patient Test Result Information Act ([place] ACT 112) guidelines. Electronically signed by Xavier Benson 11-14-2024 5:52 PM Abdomen/Pelvis CT 11/14/24 16:16 Clinical History: Liver disease. Possible mass Technique: Axial computed tomography images were obtained of the abdomen and pelvis after the administration of intravenous contrast. No prior CT is available for comparison. Findings: There is fatty infiltration of the liver. There is an apparent 6 mm cyst in the right hepatic lobe. No definite liver mass lesion is seen. The portal vein is patent. The gallbladder appears unremarkable. No bile duct dilatation is noted. The spleen is of normal size. No focal splenic lesion is evident. The pancreas appears normal with no sign of acute or chronic pancreatitis and no mass lesion noted. The pancreatic duct is of normal caliber. The adrenal glands appear unremarkable. No definite renal or proximal ureteral calculi are seen on this contrast-enhanced study. There is no hydronephrosis or perinephric stranding. No renal mass lesion is identified. There is a large 7 cm right renal cyst. There are smaller renal cortical and peripelvic cysts bilaterally. The abdominal aorta is of normal caliber. No abdominal adenopathy is seen. The stomach appears normal. There is a small right inguinal hernia containing a loop of ileum. There is no sign of small bowel obstruction. There is diverticulosis without evidence of diverticulitis. No free intraperitoneal air is identified. There is a small amount of free pelvic fluid No distal ureteral or bladder calculi are seen. No bladder mass lesion is evident. The iliac arteries are of normal caliber. No pelvic adenopathy is noted. The prostate is enlarged measuring approximately 7.5 x 6 cm. There is a small left inguinal hernia containing only fat. There is an L2 compression fracture, likely old. 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 No focal osseous lesion is seen Impression: 1. Fatty infiltration of the liver and small hepatic cyst 2. Bilateral renal cysts 3. Small right inguinal hernia containing small bowel. There is no associated bowel obstruction 4. Small amount of pelvic ascites 5. Diverticulosis without definite diverticulitis 6. Markedly enlarged prostate. Correlation with PSA levels is recommended 7. L2 compression fracture, likely old ACT 112: Positive. There are findings on this exam that require communication between the performing entity and the patient following Patient Test Result Information Act ([place] ACT 112) guidelines. Electronically signed by Xavier Benson 11-14-2024 6:29 PM Chest CTA 11/14/24 17:26 Clinical history: Liver disease. Possible mass Technique: Axial computed tomography images were obtained of the chest after the administration of intravenous contrast according to the CT angiogram protocol Findings: There is no definite sign of pulmonary embolism. There is mild pulmonary edema. There is mild emphysema. There is bilateral lower lobe atelectasis. There are bilateral moderate sized pleural effusions. There is no pneumothorax. There is no sign of pulmonary fibrosis or other diffuse interstitial process. No endobronchial lesion is seen There is a large 10 x 7 cm heterogeneously enhancing right paratracheal mass, displacing the trachea towards the left. This appears contiguous with the inferior aspect of the right lobe of the thyroid. There is no mediastinal, hilar, or axillary adenopathy. The thoracic aorta appears unremarkable with no sign of aneurysm or dissection. There is no pericardial effusion No fracture is seen. No focal osseous lesion is evident Impression: 1. No definite sign of pulmonary embolism 2. 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 While this could represent a benign thyroid nodule, thyroid or other malignancy must be considered and tissue diagnosis will likely be needed 3. Bilateral pleural effusions 4. Mild pulmonary edema and bilateral lower lobe atelectasis 5. Mild emphysema ACT 112: Positive. There are findings on this exam that require communication between the performing entity and the patient following Patient Test Result Information Act ([place] ACT 112) guidelines. Electronically signed by Xavier Benson 11-14-2024 6:22 PM Thyroid Ultrasound 11/14/24 19:28 Exam(s): US THYROID EXAM: US Soft Tissues Head and Neck, Thyroid CLINICAL HISTORY: Reason for exam: mass. TECHNIQUE: Real-time ultrasound scan of the thyroid gland and soft tissues of the neck with image documentation. COMPARISON: None. FINDINGS: Left thyroid lobe: Measured 1.5 x 5.0 x 1.7 cm in size, demonstrates a 1.5 x 1.1 x 1.1 cm complex nodule within the mid lobe. No calcified nodules. Right thyroid lobe: Measured 2.3 x 12.5 x 4.2 cm in size. Demonstrates a small 0.8 x 0.3 x 0.7 cm isoechoic nodule with smaller calcification in the mid right thyroid lobe. There is a 9.9 x 4.9 x 5.5 cm highly suspicious complex solid mass incompletely visualized along the lower pole of the right thyroid lobe. . Isthmus: Not imaged. Lymph nodes: No significant lymphadenopathy.. IMPRESSION: Demonstrates incompletely a 9.9 x 4.9 x 5.5 cm large highly suspicious complex solid mass along the inferior pole of the right thyroid lobe. Biopsies/histological diagnosis is recommended. Demonstrates a 1.5 x 1.1 cm complex solid nodule in the mid left thyroid lobe. Ultrasound-guided FNA cytology recommended. . Electronically signed by: Norma Hitchcock MD, DABR 11/15/24 01:44 AM Pending Results Patient Have Any Pending Studies at Discharge: No Discharge Instructions Given to Patient (Per Discharging Provider) Patient is an 84 year old male without known PMH (hasn't been seen by a physician for over 50 years) who presented to ER with c/o SOB and cough x 3 weeks. Denies CP, palpitations Atrial Fibrillation with RVR In the ER afebrile, P: 112, BP 143/98, R: 19, 94% on room air In the ER found to have new onset a-fib on EKG with HR 114 and PVCs. He received bolus Cardizem with HR in 80's-90's CXR: Noted "...Apparent large right paratracheal mass, concerning for neoplasm or adenopathy..." and suspected bilateral lower lobe pneumonia CTA Chest: no PE, bilateral pleural effusions, mild pulmonary edema and "... 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 No significant electrolyte abnormality Was started metoprolol tartrate 12.5mg po BID with IV heparin Echo with EF 60-65%, severe MR, and possible ruptured chordae with anterior mitral valve leaflet flail, mild posterior mitral valve leaflet prolapse Cardiology consulted, Dr Antoni Allen recommended/stated the following: "...84-year-old patient presents to the emergency department with progressive shortness of breath over 3 weeks. Clinical evidence of acute heart failure with pulmonary edema and bilateral pleural effusions. Prior to onset of symptoms patient was walking up to 5 miles daily. Denies any chest discomfort or palpitations. Found to be atrial fibrillation with rapid ventricular response on admission. Treated with IV anticoagulation and low-dose beta-maryanne therapy. Heart rates have improved. Patient feeling better with diuresis (-2.7 liters). Echocardiogram demonstrating severe mitral regurgitation with evidence of anterior mitral valve flail. Recent chordal rupture suspected with abrupt onset of symptoms 3 weeks ago, and echocardiographic evidence of MV flail with severe mitral regurgitation. 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 Recommendations: * IV diuresis, furosemide 40 mg twice daily. * Maintain negative fluid balance. * Continue beta-maryanne therapy metoprolol tartrate 12.5 mg twice daily. * Give 20 mEq oral potassium chloride now in anticipation of additional Lasix this evening. * Monitor fluid balance and daily weight (standing scale only). * Anticoagulation with IV heparin Daily CBC to monitor thrombocytopenia. * Transfer to tertiary care center for cardiothoracic surgical evaluation of mitral valve disease and thoracic surgery evaluation of mediastinal mass..." Pt was accepted for transfer to [facility] in [place] for further evaluation. Elevated troponin Troponin: 23, 24, 26- flat Denies CP EKG noting a fib with RVR Suspect demand ischemia likely from afib rvr, likely underlying CHF Mitral chordae rupture Severe mitral regurgitation Acute heart failure with preserved ejection fraction CT Chest: Bilateral pleural effusions. 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 Biopsies/histological diagnosis is recommended. Demonstrates a 1.5 x 1.1 cm complex solid nodule in the mid left thyroid lobe. Ultrasound-guided FNA cytology recommended..." General surgery consult noting "...will need to be referred, likely to a tertiary center or to a thoracic surgeon as the mass in question is in the mediastinum..." Pt was accepted for transfer to [facility] in [place] for further evaluation. Elevated LFTs T. bili: 2.3, AST: 65, ALT: 91, alk phos: 88 Unknown baseline Monitor LFTs CT abd pelvis noting "...Fatty infiltration of the liver and small hepatic cyst..." Enlarged Prostate Noted on CT abd/pelvis Noted "...Markedly enlarged prostate. Correlation with PSA levels is recommended..." Outpatient followup recommended Total Time Total Time Spent Total Time Spent (In Minutes): 60
[2024-11-15] MEDS ORDERED: FUROSEMIDE 40 MG/4 ML VIAL IV SCH (21:00)
== END 2024-11-15 18:02 | disposition short-term general hospital (02) | DRG 308 ==
LOC: ED 15:55 → 2E 19:06 → SUATTDRO 19:06 → 2E 19:58